=== PATIENT | male | born 2005 | race Hispanic/Latino ===

== ENCOUNTER 2023-06-20 12:10 | Emergency (ER) | payer BC | END 2023-06-20 12:50 | disposition home or self-care (01) | LOC: NAV ERS 12:10 | DX: R04.0 Epistaxis (principal); F17.210 Nicotine dependence, cigarettes, uncomplicated | CPT/HCPCS: 99283 ==

== ENCOUNTER 2024-04-26 09:25 | Emergency (ER) | payer BC, SELFPAY | END 2024-04-26 10:15 | disposition home or self-care (01) | LOC: NAV ERS 09:25 | DX: J03.90 Acute tonsillitis, unspecified (principal); F17.210 Nicotine dependence, cigarettes, uncomplicated | CPT/HCPCS: 87081; 87430; 99283 ==